=== PATIENT | male | born 1955 | race Caucasian/White ===

== ENCOUNTER 2020-05-23 11:11 | Observation (INO) ==
[2020-05-23] MEDS ORDERED: ONDANSETRON INJ 2 MG/ML 2 ML VIAL IV STA (12:06)
[2020-05-23] MEDS ORDERED: MoRPHine SULFATE 10 MG/ML CARP/VIAL IV STA (12:06)
[2020-05-23] MEDS ORDERED: SODIUM CHLORIDE 0.9% 1000ML 1,000 ML IV ONE (12:06)
--- NOTE | 2020-05-23 12:06 | Emergency Department Note ---
Impression & Plan Acute appendicitis with localized peritonitis, Abdominal pain, Leukocytosis ED Provider Note NAME: MARY FLORIAN AGE: 65 SEX: M : 1955 ARRIVES VIA: Walk-In INFORMANT: Patient, ED PROVIDER(S): Sadi Calabrese DO CHIEF COMPLAINT: Abdominal pain HPI: Patient is a 65-year-old male who presents the ER for mid abdominal pain. This started yesterday after eating breakfast. He has been having nausea and vomiting and diarrhea since then. He was seen in the ER earlier this morning. He had a CT abdomen pelvis done which did not visualize the appendix. He was called back in as he was having worsening pain and was instructed to come back in.. He denies any dysuria urgency or frequency. No fevers. He is unable to eat or drink. He notes the pain is sharp stabbing and a 10 out of 10 and radiates across his abdomen. No other exacerbating or remitting factors. No previous abdominal surgeries. ROS: See above HPI for pertinent positives & negatives. A total of 10 systems reviewed and were otherwise negative. PAST MEDICAL HISTORY:See Below PAST SURGICAL HISTORY:See Below FAMILY HISTORY:See Below SOCIAL HISTORY:See Below HOME MEDICATIONS:See Below ALLERGIES:See Below VITALS:See Below PHYSICAL EXAMINATION: GENERAL: Sitting up in bed, alert, well appearing, well nourished, no distress, non-toxic EYE EXAM: normal conjunctiva. OROPHARYNX: no exudate, no erythema, lips, buccal mucosa, and tongue normal and mucous membranes are moist NECK: supple, no nuchal rigidity, no adenopathy, non-tender LUNGS: Clear to auscultation. Normal chest wall mechanics HEART: no murmurs, S1 normal and S2 normal ABDOMEN: Diffuse tenderness throughout entire abdomen localized in right lower quadrant, +rebound and guarding BACK: Back is symmetrical on inspection and there is no deformity, no midline tenderness, no CVA tenderness. SKIN: no rashes and no bruising UPPER EXTREMITIES: upper extremities are grossly normal. LOWER EXTREMITIES: No pitting edema. NEURO EXAM: Normal sensorium, cranial nerves II-XII grossly intact, normal speech, no gross weakness of arms, no gross weakness of legs. MEDICAL DECISION MAKING: Patient is a 65-year-old male who presents the ER for diffuse abdominal pain. He was seen here earlier today and had a CT of his abdomen pelvis per report it was unremarkable And red as a gastroenteritis. It was reread this morning by our radiologist who is concern for acute appendicitis. Patient did call back in and was having worsening pain. He was instructed to return. On my exam Patient had rebound and guarding in the right lower quadrant. Review of the CT showed likely appendicitis with free air.Labs were still consistent with a leukocytosis which decreased slightly at 14,000. No significant anemia. BMP with LFTs bilirubin and lipase was unremarkable.She was given IV antibiotics and re discussed with general surgery and was taken to the ER.He was also given IV pain medications as well as fluids and Zofran. Triage Nursing notes reviewed. Prior medical records reviewed Vital Signs: reviewed and remarkable for Hypertensive Differential diagnosis: Differential diagnoses includes but is not limited to gastritis, peptic ulcer disease, GERD, gallbladder disease, pancreatitis, small bowel obstruction, acute coronary syndrome, pericarditis, ischemic bowel, irritable bowel disease, irritable bowel syndrome, appendicitis, diverticulitis, malignancy, hernia, urinary tract infection, torsion, perforation, trauma, infectious. ER treatment provided: See below Diagnostics interpreted by me: ECG: none Cardiac Monitoring: An order was placed for continuous cardiac monitoring. The monitor shows a rate of 52 with sinus rhythm. Laboratory studies: As stated above and show below. Imaging studies: CT reviewed from previous visit Consultation(s): Discussed with Dr. Otf Painting who believes to be consistent with acute appendicitis and a small perforation Discussed with Bill from general surgery who evaluated the patient to come to the ER. ED COURSE: Procedures: none Critical Care: None Past Med/Surg History Medical History Acute appendicitis with localized peritonitis No significant past medical history Surgical History H/O hemorrhoidectomy Social History Preferred Language: Israeli Feels Safe at Home: Yes Smoking Status: Former smoker Allergies Allergies Allergy/AdvReac Type Severity Reaction Status Date / Time No Known Allergies Allergy Unverified 05/23/20 11:52 Home Meds Home Medications Medication Instructions Recorded Confirmed No Known Home Medications 05/23/20 05/23/20 Results & Data (ED) Vital Signs Vital Signs - 24 hr 05/23/20 11:16 05/23/20 11:36 05/23/20 11:41 Temperature 36.4 C L Temperature Source Oral Pulse Rate 45 L 46 L Pulse Rate [Left Finger] Pulse Rate from SpO2 Sensor 46 L Pulse Rhythm [Left Finger] Pulse Strength [Left Finger] Respiratory Rate 20 22 Respiratory Effort / Characteristics Non-Labored Spontaneous Respiratory Depth Normal Respiratory Pattern Regular Blood Pressure 169/73 H 161/76 H Blood Pressure [Left Arm] Blood Pressure Mean 105 102 Blood Pressure Mean [Left Arm] Blood Pressure Position [Left Arm] Pulse Oximetry 100 94 Oxygen Delivery Method Room Air Room Air Room Air Sepsis Recent Fever Within 48 Hours No Sepsis New/Unexplained Change in Mental Status No Sepsis Action Taken by Nursing No Action Required 05/23/20 12:00 05/23/20 12:30 05/23/20 13:00 Temperature Temperature Source Pulse Rate 48 L 48 L 47 L Pulse Rate [Left Finger] Pulse Rate from SpO2 Sensor 49 L 47 L Pulse Rhythm [Left Finger] Pulse Strength [Left Finger] Respiratory Rate 16 16 16 Respiratory Effort / Characteristics Respiratory Depth Respiratory Pattern Blood Pressure 154/76 H 146/73 H 143/81 H Blood Pressure [Left Arm] Blood Pressure Mean 106 100 102 Blood Pressure Mean [Left Arm] Blood Pressure Position [Left Arm] Pulse Oximetry 99 96 95 Oxygen Delivery Method Room Air Room Air Room Air Sepsis Recent Fever Within 48 Hours Sepsis New/Unexplained Change in Mental Status Sepsis Action Taken by Nursing 05/23/20 13:30 05/23/20 14:00 05/23/20 14:30 Temperature Temperature Source Pulse Rate 41 L 41 L 44 L Pulse Rate [Left Finger] Pulse Rate from SpO2 Sensor 41 L 42 L 44 L Pulse Rhythm [Left Finger] Pulse Strength [Left Finger] Respiratory Rate 17 17 20 Respiratory Effort / Characteristics Respiratory Depth Respiratory Pattern Blood Pressure 148/78 H 149/75 H 147/74 H Blood Pressure [Left Arm] Blood Pressure Mean 109 88 101 Blood Pressure Mean [Left Arm] Blood Pressure Position [Left Arm] Pulse Oximetry 99 97 97 Oxygen Delivery Method Room Air Sepsis Recent Fever Within 48 Hours Sepsis New/Unexplained Change in Mental Status Sepsis Action Taken by Nursing 05/23/20 14:58 Temperature 37 C Temperature Source Oral Pulse Rate Pulse Rate [Left Finger] 44 L Pulse Rate from SpO2 Sensor Pulse Rhythm [Left Finger] Regular Pulse Strength [Left Finger] Normal Respiratory Rate 18 Respiratory Effort / Characteristics Non-Labored Spontaneous Respiratory Depth Normal Respiratory Pattern Regular Blood Pressure Blood Pressure [Left Arm] 183/84 H Blood Pressure Mean Blood Pressure Mean [Left Arm] 117 Blood Pressure Position [Left Arm] Lying Pulse Oximetry 99 Oxygen Delivery Method Room Air Sepsis Recent Fever Within 48 Hours Sepsis New/Unexplained Change in Mental Status Sepsis Action Taken by Nursing Laboratory Data Result diagrams: 05/23/20 11:35 05/23/20 11:35 Lab Results 05/23/20 05/23/20 Range/Units 11:35 11:35 WBC 14.42 H (4.8-10.8) K/uL RBC 4.69 L (4.7-6.1) M/uL Hgb 14.2 (14.0-18.0) g/dL Hct 40.7 L (42-52) % MCV 86.8 (80-100) fL MCH 30.3 (25-34) pg MCHC 34.9 (32-36) g/dL RDW Std Deviation 41.3 (36.4-46.3) fL RDW Coeff of Carolee 13.0 (11.5-14.5) % Plt Count 269 (130-400) K/uL MPV 10.0 (7.4-10.4) fL Immature Gran % (Auto) 0.2 % Neut % (Auto) 77.8 % Lymph % (Auto) 13.2 % [place] % (Auto) 8.5 % Eos % (Auto) 0.2 % Baso % (Auto) 0.1 % Neut # (Auto) 11.20 H (1.4-6.5) K/uL Lymph # (Auto) 1.91 (1.2-3.4) K/uL [place] # (Auto) 1.23 H (0.11-0.59) K/uL Eos # (Auto) 0.03 (0-0.5) K/uL Baso # (Auto) 0.02 (0-0.2) K/uL Immature Gran # (Auto) 0.03 H (0.00-0.02) K/uL Sodium 135 L (136-145) mmol/L Potassium 3.7 (3.5-5.1) mmol/L Chloride 104 (98-107) mmol/L Carbon Dioxide 23 (21-32) mmol/L Anion Gap 8.0 (3-11) BUN 11 (7-18) mg/dl Creatinine 0.95 (0.6-1.4) mg/dl Est Cr Clr Drug Dosing 71.5 ml/min Est GFR ( Amer) 96.3 Est GFR (Non-Af Amer) 83.1 BUN/Creatinine Ratio 11.9 (10-20) Glucose 112 H (70-99) mg/dl Calcium 8.7 (8.5-10.1) mg/dl Total Bilirubin 0.7 (0.2-1) mg/dl AST 18 (15-37) U/L ALT 24 (12-78) U/L Alkaline Phosphatase 105 (45-117) U/L Total Protein 7.6 (6.4-8.2) gm/dl Albumin 3.8 (3.4-5.0) gm/dl Globulin 3.8 (2.5-4.0) gm/dl Albumin/Globulin Ratio 1.0 (0.9-2) Lipase 114 (73-393) U/L Administered Medications Discontinued Medications Bupivacaine HCl (Marcaine 0.5% Mpf) Confirm Administered Dose 30 ml .ROUTE .STK- MED ONE Stop: 05/23/20 15:28 Last Admin: 05/23/20 16:46 Dose: 20 ml Documented by: [id number] Sodium Chloride (Nss 1000ml) 1,000 mls @ 999 mls/hr IV .Q1H1M ONE Stop: 05/23/20 13:06 Last Infusion: 05/23/20 13:27 Dose: 0 mls/hr Documented by: [id number] Admin: 05/23/20 12:23 Dose: 999 mls/hr Documented by: [id number] Piperacillin Sod/Tazobactam Sod (Zosyn) 4.5 gm in 120 mls @ 240 mls/hr IV NOW ONE Stop: 05/23/20 12:46 Last Infusion: 05/23/20 13:00 Dose: 0 mls/hr Documented by: [id number] Admin: 05/23/20 12:29 Dose: 240 mls/hr Documented by: [id number] Morphine Sulfate (Morphine Sulfate) 6 mg IV NOW STA Stop: 05/23/20 12:07 Last Admin: 05/23/20 12:23 Dose: 6 mg Documented by: [id number] Ondansetron HCl (Zofran) 4 mg IV NOW STA Stop: 05/23/20 12:07 Last Admin: 05/23/20 12:23 Dose: 4 mg Documented by: [id number] Discharge Plan Visit Data *Final* Discharge Date/Time: 05/23/20 14:50 Chief Complaint: Abdominal Pain Stated Complaint: ABD PAIN ED Provider: Sadi Calabrese Discharge Problem: Acute appendicitis with localized peritonitis, Abdominal pain, Leukocytosis Patient Disposition: Still a Patient Discharge Instructions Interventions: ED Discharge Assessment Last Done: 05/23/20 14:50 Discharge Problem: Acute appendicitis with localized peritonitis Qualifiers: Appendicitis gangrene presence: unspecified whether gangrene present Appendicitis perforation presence: unspecified whether perforation present Appendicitis abscess presence: unspecified whether abscess present Qualified Code(s): K35.30 - Acute appendicitis with localized peritonitis, without perforation or gangrene Abdominal pain Qualifiers: Abdominal location: unspecified location Qualified Code(s): R10.9 - Unspecified abdominal pain Leukocytosis Qualifiers: Leukocytosis type: unspecified Qualified Code(s): D72.829 - Elevated white blood cell count, unspecified
[2020-05-23] MEDS ORDERED: PIPERACILLIN/TAZOBACTAM 4.5 GM/120 ML BAG IV ONE (12:17)
[2020-05-23] MEDS ORDERED: PIPERACILL/TAZOBAC CONSULT ACTIVE PRN (12:17)
[2020-05-23 12:19] LABS: Basophils # (auto) 0.02 K/uL (0-0.2); Basophils % (auto) 0.1 %; Eosinophils # (auto) 0.03 K/uL (0-0.5); Eosinophils % (auto) 0.2 %; Hematocrit (blood only) 40.7 % (42-52); Hemoglobin 14.2 g/dL (14.0-18.0); Immature Granulocytes # (auto) 0.03 K/uL (0.00-0.02); Immature Granulocytes % (auto) 0.2 %; Lymphocytes # (auto) 1.91 K/uL (1.2-3.4); Lymphocytes % (auto) 13.2 %; Mean Corpuscular Hemoglobin 30.3 pg (25-34); Mean Corpuscular Hgb Conc 34.9 g/dL (32-36); Mean Corpuscular Volume 86.8 fL (80-100); Monocytes # (auto) 1.23 K/uL (0.11-0.59); Monocytes % (auto) 8.5 %; Neutrophils % (auto) 77.8 %; Platelet Count 269 K/uL (130-400); RDW Standard Deviation 41.3 fL (36.4-46.3); Red Blood Count 4.69 M/uL (4.7-6.1); White Blood Count 14.42 K/uL (4.8-10.8)
[2020-05-23 12:30] LABS: Albumin Level 3.8 gm/dl (3.4-5.0); BUN Creatinine Ratio 11.9 (10-20); Calcium 8.7 mg/dl (8.5-10.1); Creatinine Clr Calc Pharmacy 71.5 ml/min; Est GFR (African American) 96.3; Est GFR (Non-African American) 83.1; Potassium 3.7 mmol/L (3.5-5.1)
[2020-05-23 12:33] LABS: Bilirubin,Total 0.7 mg/dl (0.2-1); Globulin 3.8 gm/dl (2.5-4.0); Total Protein 7.6 gm/dl (6.4-8.2)
--- NOTE | 2020-05-23 13:22 | History & Physical Report ---
Date of Service May 23, 2020 Assessment & Plan (1) Acute appendicitis with localized peritonitis: Acute appendicitis 65-year-old male with suspected acute appendicitis based on imaging and abdominal exam. He understands that this may represent a small bowel loop, however he would like to proceed with surgery rather than follow-up imaging. Also he understands that there could be a perforation requiring conversion to open her small bowel resection. Plan for laparoscopic appendectomy, possible open, possible bowel resection The risks of the procedure were discussed to include but not limited to bleeding, infection, normal appendix, damage to surrounding structures, conversion open, need for future more extensive surgery, and the risk of anesthesia Zosyn given in ER Admit for observation overnight Diagnosis, details the procedure and recovery, and plan of care discussed the patient, all questions were answered, the patient expressed understanding agrees the plan of care as stated History of Present Illness Chief Complaint: Abdominal pain Primary Care Provider: NO PCP 65-year-old male called back to the emergency room over concerns for appendicitis. He started having global abdominal pain yesterday morning after eating breakfast. He did have some diarrhea. He felt like it was indigestion and may be had some food poisoning, however the pain began to worsen. He eventually presented to the emergency department and had a work-up that included a CT scan with IV contrast as well as labs. The CT scan was read as possibly some enteritis with some dilated loops of small bowel, with nonvisualization of the appendix. He was given an anti-inflammatory as well as some antiemetics and felt a little bit better and was discharged home. He called back this morning because his symptoms had returned, at which point they informed him that the CT scan had been over read by our radiologist as a likely acute appendicitis and t hat he should come back to the emergency department. There have been no changes in his status. He did vomit early this morning after trying to drink some fluids. He has had colonoscopies in the past, most recently 6 months ago. No personal or family history of inflammatory bowel disease. He is never had symptoms like this before. He does have a low heart rate at baseline which is been worked up in the past. 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 Allergies Allergy/AdvReac Type Severity Reaction Status Date / Time No Known Allergies Allergy Unverified 05/23/20 11:52 Home Medications Home Medications Medication Instructions Recorded Confirmed Type No Known Home Medications 05/23/20 05/23/20 History Past Med/Surg History Social History Preferred Language: Polish Feels Safe at Home: Yes Smoking Status: Former smoker Review of Systems Review of Systems: All systems reviewed & are unremarkable except as noted in HPI & below Physical Exam Constitutional: WD/WN, vitals as above Eyes: PERRL, conjunctivae normal, anicteric sclerae ENMT: external ear and nose normal, oropharynx normal Neck: trachea midline, no thyromegaly Respiratory: normal respiratory effort, lungs clear to auscultation Cardiovascular: Rate/Rhythm: regular rhythm and + bradycardic Gastrointestinal (Abdomen): Percussion/Palpation: + abdomen tender (Diffusely tender to palpation, no guarding, worse in the RLQ) and abdomen soft; no guarding, abdomen not rigid and no hepatosplenomegaly Musculoskeletal: no cyanosis or clubbing, extremities motor strength 5/5 Skin: no rashes, warm and dry Neurologic: PERRL, EOMI, accommodation nl, no face palsy, no dysarthria Psychiatric: A+Ox3, euthymic affect Lymphatic: no cervical or axillary lymphadenopathy Results & Data Results & Data ([facility]) Vital Signs (Past 12 Hours) Vital Signs Temp Pulse Resp BP Pulse Ox 05/23/20 11:16 36.4 C L 45 L 20 169/73 H 100 Laboratory Results Laboratory Results - last 24 hr 05/23/20 05/23/20 11:35 11:35 WBC 14.42 H RBC 4.69 L Hgb 14.2 Hct 40.7 L MCV 86.8 MCH 30.3 MCHC 34.9 RDW Std Deviation 41.3 RDW Coeff of Carolee 13.0 Plt Count 269 MPV 10.0 Immature Gran % (Auto) 0.2 Neut % (Auto) 77.8 Lymph % (Auto) 13.2 [place] % (Auto) 8.5 Eos % (Auto) 0.2 Baso % (Auto) 0.1 Neut # (Auto) 11.20 H Lymph # (Auto) 1.91 [place] # (Auto) 1.23 H Eos # (Auto) 0.03 Baso # (Auto) 0.02 Immature Gran # (Auto) 0.03 H Sodium 135 L Potassium 3.7 Chloride 104 Carbon Dioxide 23 Anion Gap 8.0 BUN 11 Creatinine 0.95 Est Cr Clr Drug Dosing 71.5 Est GFR ( Amer) 96.3 Est GFR (Non-Af Amer) 83.1 BUN/Creatinine Ratio 11.9 Glucose 112 H Calcium 8.7 Total Bilirubin 0.7 AST 18 ALT 24 Alkaline Phosphatase 105 Total Protein 7.6 Albumin 3.8 Globulin 3.8 Albumin/Globulin Ratio 1.0 Lipase 114 Diagnostic Findings [place], [place] [phone] CT Scan Report Patient: MARY FLORIAN Date: 05/23/20 MR#: [id number]: [address] Acct ID:[id number]: [facility] Zip[facility] [id number] [id number] Age: 65Location: ED Sex: M Room/Bed: Att Phy:Diagnosis: ABD PAIN, CRAMPING Erna Phy: PCP,Maria Esther Date: 05/23/20 Fam Phy:Interpreting Phy: Akil Painting MD Admit Phy: Ordering Phy: Gracie Gage PA-C cc: ~ CT OF THE ABDOMEN AND PELVIS WITH CONTRAST CLINICAL HISTORY: abdominal cramping, vomiting COMPARISON STUDY: None. TECHNIQUE: Following IV administration of 91 mL of Optiray-320, axial images of the abdomen and pelvis were obtained from the lung bases to the proximal femurs. Images were reviewed in the axial, sagittal, and coronal planes. IV contrast was administered without complication. Automated exposure control was utilized for the study. A dose lowering technique was utilized adhering to the principles of ALARA. CT DOSE: 386.75 mGy.cm FINDINGS: Lung bases are unremarkable. No pneumatosis, free air or portal venous gas is present. The liver, spleen, adrenal glands, kidneys and pancreas are normal. There is no biliary or pancreatic ductal dilatation. There is no peripancreatic or pericholecystic infiltration. Mild wall thickening of several proximal small bowel loops is noted. A diverticulum of the second portion of the duodenum is noted. Note is made of a gas and fluid filled structure within the right lower quadrant that measures 2.1 cm in caliber. There is minimal adjacent infiltration. 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 This contains hyperdense material. Equivocal adjacent extraluminal gas is noted. There is sigmoid diverticulosis without evidence for acute diverticulitis. IMPRESSION: Fluid and gas containing structure within the right lower quadrant with minimal adjacent infiltration that measures 2.1 cm in caliber. A dilated appendix suggestive of acute appendicitis is favored. Equivocal extraluminal gas. Less likely, this could reflect a small bowel loop. If the clinical picture is not suggestive of acute appendicitis, a repeat CT is recommended. Findings discussed with Dr. Bee at time of dictation. ACT 112: Negative or n PG Care Time/CCT Total # of Minutes Spent Total Time Spent with Patient: Total time spent is greater than 50% in coordination of care (as documented) at patient's floor/unit and/or counseling patient: Coding Level of Care Code 67186 OBS Care - Level 3 Diagnoses Acute appendicitis with localized peritonitis K35.30
[2020-05-23] MEDS ORDERED: MIDAZOLAM HCL 1 MG/ML 2ML VIAL ONE (14:38)
[2020-05-23] MEDS ORDERED: NEOSTIGMINE METHYLSULFATE 5 MG/5 ML SYR ONE (14:38)
[2020-05-23] MEDS ORDERED: LIDOCAINE HCL 2% 2 ML VIAL/AMP(20MG/ML) INFIL ONE (14:38)
[2020-05-23] MEDS ORDERED: PROPOFOL IV EMULSION 10 MG/ML 20 ML VIAL IV ONE (14:38)
[2020-05-23] MEDS ORDERED: ONDANSETRON INJ 2 MG/ML 2 ML VIAL ONE ×2 (14:38→16:13)
[2020-05-23] MEDS ORDERED: fentaNYL citrate 100 MCG/2 ML VIAL ONE (14:38)
[2020-05-23] MEDS ORDERED: DEXAMETHASONE SOD INJ 4 MG/ML VIAL ONE (14:38)
[2020-05-23] MEDS ORDERED: GLYCOPYRROLATE 0.2 MG/ML VIAL ONE ×2 (14:38→16:40)
[2020-05-23] MEDS ORDERED: BUPIVACAINE 0.5 % 5 MG/1 ML MPF 30ML VIAL ONE (15:27)
[2020-05-23] MEDS ORDERED: PROMETHAZINE HCL 6.25 MG in SODIUM CHLORIDE 0.9% 50 ML IV PRN (15:53)
[2020-05-23] MEDS ORDERED: fentaNYL citrate 100 MCG/2 ML VIAL IV PRN (15:53)
[2020-05-23] MEDS ORDERED: ATROPINE SULFATE 0.1 MG/ML 10ML SYR IV PRN (15:53)
[2020-05-23] MEDS ORDERED: ePHEDrine sulfate 50 MG/ML AMP IV PRN (15:53)
[2020-05-23] MEDS ORDERED: ONDANSETRON INJ 2 MG/ML 2 ML VIAL IV PRN ×2 (15:53→18:31)
[2020-05-23] MEDS ORDERED: HYDROmorphone INJ 2 MG/ML SYR/VIAL IV PRN (15:53)
--- NOTE | 2020-05-23 15:54 | Anesthesiology Consultation ---
Date of Service May 23, 2020 Assessment & Plan (1) Encounter for pre-operative examination: Chart Review Chart Review: Acceptable Risk for Surgery and Patient NOT seen in Pre Admission Testing Consults Requested none ASA [id number] Proposed Anesthesia Anesthesia Type: General Risk / Benefits Reviewed With: PT / POA / Parent / Guardian, Accepts Plan and I nformed Consent Obtained History Surgery Operation Date: 05/23/20 15:00 Proposed Procedures p Laparoscopic Appendectomy - Jaret Mcnair, DO, FACS Height/Weight Height: 5 ft 7 in Weight: 70 kg Allergies Allergy/AdvReac Type Severity Reaction Status Date / Time No Known Allergies Allergy Unverified 05/23/20 11:52 Medications Home Medications Medication Instructions Recorded Confirmed Last Taken No Known Home Medications 05/23/20 05/23/20 Unknown NPO Date Last Intake of Fluids: 05/23/20 Time Last Intake of Fluids: 08:00 Date Last Intake of Solids: 05/22/20 Time Last Intake of Solids: 15:00 Past Medical History Medical History Acute appendicitis with localized peritonitis No significant past medical history Exercise / Class Metabolic Activity II 4-5 Yardwork/Stairs/Walk up hill Past Surgical History Surgical History H/O hemorrhoidectomy Past Anesthesia History No Hx of Anesthesia Complications and No Family Hx of Anesthesia Complications History of PONV No Hx of PONV and No Hx of Motion Sickness Social History Smoking Status: Former smoker Physical Exam Vital Signs Last Vital Signs Temp 37 C 05/23/20 14:58 Pulse 44 L 05/23/20 14:58 Resp 18 05/23/20 14:58 BP 183/84 H 05/23/20 14:58 Pulse Ox 99 05/23/20 14:58 ENMT Mouth: no dentition abnormality Thyromental Distance: > or= 3.5 Finger Breadths Mallampati Class: II Neck normal visual inspection Respiratory normal respiratory effort Auscultation: lungs clear to auscultation bilaterally Cardiovascular Rate/Rhythm: regular rate and regular rhythm Psychiatric Orientation: alert Testing Laboratory Results 05/23/20 11:35 05/23/20 11:35
--- NOTE | 2020-05-23 16:50 | Operative Report ---
PG Post Operative Report Pre & Post Diagnosis Operation Date: 05/23/20 15:00 Pre-Op Diagnosis: acute appendicitis Postoperative diagnosis: Acute, nonperforated appendicitis I identified the patient and participated in the time-out.: Yes Procedure Operation Date: 05/23/20 15:00 Laparoscopic appendectomy Surgeon Jaret Mcnair DO, FACS Mohs Surgeon Kolton Cruz Estimated Blood Loss 5 Findings Consistent with Post-Op Diagnosis Dilated, minimally inflamed appendix, healthy base. No evidence of perforation. Good hemostasis. Specimens Appendix Anesthesia Type General Complications none Disposition Accompanied Patient To Recovery: No Disposition: Recovery Room Indications 65-year-old male presented with with abdominal pain overnight, CT scan initially read as negative, was called back due to over read concerning for acute appendicitis. Reviewed with radiologist, agree with read of appendicitis based on physical exam, lab work, and imaging. Plan for laparoscopic appendectomy, possible open, possible bowel resection. The risks of the procedure were discussed, all questions were answered, and the patient agreed to proceed with surgery as planned. Description of Procedure The patient was properly identified, consented, and taken to the operating room where he was placed in the supine position. General endotracheal anesthesia was induced. SCDs and a safety belt were placed. Preoperative antibiotics were administered. A Castellanos catheter was not placed. The patient's abdomen was prepped and draped in the standard sterile fashion. Surgical timeout was performed and all parties were in agreement that this was the correct patient and procedure to be performed and we continued as planned. A curvilinear infraumbilical incision was made with electrocautery and deepened down to the fascia with blunt dissection. The base of the umbilicus was grasped with a Agapito and elevated towards the ceiling. An incision was made in the midline fascia with a knife and entry into the peritoneum was confirmed. Stay suture of 0 Vicryl was placed and a Oliveira trocar was inserted. The abdomen was insufflated with carbon dioxide which the patient tolerated without incident. The laparoscope was inserted and no damage from initial trocar placement was noted, no gross abnormalities were noted within the 4 quadrants of the abdomen. 5 mm ports were then placed in the left lower quadrant with care not to damage the epigastric vessels, and in the suprapubic midline with care not to damage the bladder. The patient was placed in Trendelenburg position and rotated towards the left. The small bowel was swept away from the right lower quadrant. The cecum was grasped with an atraumatic grasper exposing the appendix. The appendix was significantly dilated and moderately inflamed. There was no evidence of perforation. There was minimal reactive fluid in the pelvis. A window was created between the base of the appendix and the mesoappendix. A adam loaded endoscopic stapler was then used to divide the appendix at its base. A adam load was then used to divide the mesoappendix. Hemostasis was good. The appendix remained intact and was placed in an Endo Catch bag and removed through the umbilical port site. The right lower quadrant and pelvis was irrigated and hemostasis was found to be good. 5 mm trochars were removed under direct visualization and the abdomen was allowed to collapse. The umbilical port site fascia was closed with 0 Vicryl suture. The wound was irrigated, and the skin of all ports was closed with 4-0 Monocryl subcuticular sutures. Dermabond was placed over the wounds. The patient was extubated in the operating room and taken to the PACU where he recovered without apparent incident. All sponge, instrument and needle counts were correct at the conclusion of the procedure. The patient tolerated the procedure well. The physician's financial sales assistant was present and scrubbed for the entire the case. He was critical in positioning the patient, prepping and draping, retraction and exposure, driving the laparoscope, closure the incisions, and placement of the d ressings. I attest to the content of the Intraoperative Record and any orders documented therein. Any exceptions are noted below.
--- NOTE | 2020-05-23 17:43 | Anesthesiology Progress Note ---
Date of Service May 23, 2020 Anesthesia Post Procedure Vital Signs Vital Signs: Temp Pulse Pulse Pulse Resp BP BP 05/23/20 17:29 36.3 C L 55 L 17 144/85 H 05/23/20 14:58 37 C 44 L 18 183/84 H 05/23/20 14:30 44 L 20 147/74 H 05/23/20 14:00 41 L 17 149/75 H 05/23/20 13:30 41 L 17 148/78 H 05/23/20 13:00 47 L 16 143/81 H 05/23/20 12:30 48 L 16 146/73 H 05/23/20 12:00 48 L 16 154/76 H 05/23/20 11:36 46 L 22 161/76 H 05/23/20 11:16 36.4 C L 45 L 20 169/73 H Pulse Ox 05/23/20 17:29 97 05/23/20 14:58 99 05/23/20 14:30 97 05/23/20 14:00 97 05/23/20 13:30 99 05/23/20 13:00 95 05/23/20 12:30 96 05/23/20 12:00 99 05/23/20 11:36 94 05/23/20 11:16 100 Pain Intensity Abdomen: Pain Intensity: 6 Transfer of Care Handoff Completed per policy Notes Mental Status: alert / awake / arousable Patient Amnestic to Procedure: Yes Nausea / Vomiting: adequately controlled Pain: adequately controlled Airway Patency, RR, SpO2: stable & adequate BP & HR: stable & adequate Hydration State: stable & adequate Anesthetic Complications: no major complications apparent
[2020-05-23] MEDS ORDERED: ACETAMINOPHEN 325 MG TAB PO PRN (18:31)
[2020-05-23] MEDS ORDERED: MoRPHine SULFATE 4 MG/ML 1 ML CARP\\VIAL IV PRN (18:31)
[2020-05-23] MEDS ORDERED: MoRPHine SULFATE 2 MG/ML CARP IV PRN (18:31)
[2020-05-23] MEDS ORDERED: OXYCODONE/ACETAMINOPHEN 5mg/325mg TAB PO PRN (18:31)
[2020-05-23] MEDS: cefOXitin 2,000 MG in DEXTROSE 5% 50 ML IV SCH (20:18)
[2020-05-23] MEDS: LACTATED RINGER'S 1,000 ML IV SCH (20:18)
[2020-05-24] MEDS: cefOXitin 2,000 MG in DEXTROSE 5% 50 ML IV SCH ×2 (00:18→06:12)
[2020-05-24] MEDS: LACTATED RINGER'S 1,000 ML IV SCH (00:19)
[2020-05-24 01:19] LABS: Appearance Urine Clear (Clear); Bilirubin Urine Negative (Negative); Blood Urine Negative (Negative); Color Urine Yellow; Glucose Urine UA Negative (Negative); Ketones Urine Negative (Negative); Leukocyte Esterase Urine Negative (Negative); Nitrite Urine Negative (Negative); Protein Urine Negative (Negative); Specific Gravity Urine 1.008 (1.000-1.030); Urobilinogen Urine Negative (Negative); pH Urine 6.5 (4.5-7.5)
--- NOTE | 2020-05-24 08:11 | Anesthesiology Progress Note ---
Date of Service May 24, 2020 Anesthesia Post Procedure Vital Signs Vital Signs: Temp Pulse Pulse Pulse Resp BP BP 05/24/20 07:49 37 C 45 L 16 147/74 H 05/24/20 03:54 36.8 C 59 L 18 118/65 05/23/20 23:50 36.8 C 54 L 18 147/74 H 05/23/20 21:30 36.7 C 56 L 15 119/76 05/23/20 21:03 36.5 C 57 L 16 137/61 05/23/20 19:30 36.6 C 58 L 16 136/73 05/23/20 19:00 36.6 C 47 L 18 152/62 H 05/23/20 18:30 35.6 C L 55 L 16 130/75 05/23/20 18:05 36.3 C L 46 L 15 118/63 05/23/20 17:55 69 19 129/64 05/23/20 17:45 45 L 15 127/68 05/23/20 17:35 48 L 21 135/71 05/23/20 17:29 36.3 C L 55 L 17 144/85 H 05/23/20 14:58 37 C 44 L 18 183/84 H 05/23/20 14:30 44 L 20 147/74 H 05/23/20 14:00 41 L 17 149/75 H 05/23/20 13:30 41 L 17 148/78 H 05/23/20 13:00 47 L 16 143/81 H 05/23/20 12:30 48 L 16 146/73 H 05/23/20 12:00 48 L 16 154/76 H 05/23/20 11:36 46 L 22 161/76 H 05/23/20 11:16 36.4 C L 45 L 20 169/73 H Pulse Ox 05/24/20 07:49 98 05/24/20 03:54 98 05/23/20 23:50 99 05/23/20 21:30 96 05/23/20 21:03 100 05/23/20 19:30 96 05/23/20 19:00 97 05/23/20 18:30 97 05/23/20 18:05 95 05/23/20 17:55 93 05/23/20 17:45 96 05/23/20 17:35 93 05/23/20 17:29 97 05/23/20 14:58 99 05/23/20 14:30 97 05/23/20 14:00 97 05/23/20 13:30 99 05/23/20 13:00 95 05/23/20 12:30 96 05/23/20 12:00 99 05/23/20 11:36 94 05/23/20 11:16 100 Pain Intensity Abdomen: Pain Intensity: 6 Notes Mental Status: alert / awake / arousable and participated in evaluation Patient Amnestic to Procedure: Yes Nausea / Vomiting: adequately controlled Pain: adequately controlled Airway Patency, RR, SpO2: stable & adequate BP & HR: stable & adequate Hydration State: stable & adequate Anesthetic Complications: no major complications apparent and Pt Satisfied with anesthetic care
--- NOTE | 2020-05-24 08:19 | Surgery Progress Note ---
Date of Service May 24, 2020 Assessment & Plan (1) Acute appendicitis with localized peritonitis: POD 1 lap appy advance diet d/c when tolerating diet Supervising Physician Co-Signing Physician Notes Patient seen and examined, labs reviewed, agree with above. POD #1 laparoscopic appendectomy. Pain significantly improved, tolerated regular diet. Straight cath overnight for urinary retention, but is now peeing normally. On exam he is afebrile with normal vital signs. His abdomen soft, nontender, nondistended. Incisions healing well with Dermabond in place. Some ecchymosis around umbilical incision. POD #1 lap appendectomy Discharge to home Follow-up in 2 weeks Activity restrictions and wound care instructions reviewed Return precautions given Call with questions or concerns Subjective feels much better, some shoulder pain Physical Exam Gastrointestinal (Abdomen): Inspection/Auscultation: + abdominal surgical incision (clean, dry) Percussion/Palpation: abdomen soft Results & Data Vital Signs (Past 12 Hours) Vital Signs Temp Pulse Resp BP Pulse Ox 05/24/20 07:49 37 C 45 L 16 147/74 H 98 05/24/20 03:54 36.8 C 59 L 18 118/65 98 05/23/20 23:50 36.8 C 54 L 18 147/74 H 99 05/23/20 21:30 36.7 C 56 L 15 119/76 96 05/23/20 21:03 36.5 C 57 L 16 137/61 100 PG Care Time/CCT Total # of Minutes Spent Total Time Spent with Patient: Total time spent is greater than 50% in coordination of care (as documented) at patient's floor/unit and/or counseling patient: Coding Level of Care Code None Diagnoses Acute appendicitis with localized peritonitis K35.30 Appendicitis abscess presence: unspecified whether abscess present Appendicitis gangrene presence: unspecified whether gangrene present Appendicitis perforation presence: unspecified whether perforation present (1) Acute appendicitis with localized peritonitis Appendicitis abscess presence: unspecified whether abscess present Appendicitis gangrene presence: unspecified whether gangrene present Appendicitis perforation presence: unspecified whether perforation present Qualified Code(s): K35.30 - Acute appendicitis with localized peritonitis, without perforation or gangrene
--- NOTE | 2020-05-24 10:36 | Discharge Summary ---
Date of Service May 24, 2020 Admission HPI Per Admitting Provider 65-year-old male called back to the emergency room over concerns for appendicitis. He started having global abdominal pain yesterday morning after eating breakfast. He did have some diarrhea. He felt like it was indigestion and may be had some food poisoning, however the pain began to worsen. He eventually presented to the emergency department and had a work-up that included a CT scan with IV contrast as well as labs. The CT scan was read as possibly some enteritis with some dilated loops of small bowel, with nonvisualization of the appendix. He was given an anti-inflammatory as well as some antiemetics and felt a little bit better and was discharged home. He called back this morning because his symptoms had returned, at which point they informed him that the CT scan had been over read by our radiologist as a likely acute appendicitis and that he should come back to the emergency department. There have been no changes in his status. He did vomit early this morning after trying to drink some fluids. He has had colonoscopies in the past, most recently 6 months ago. No personal or family history of inflammatory bowel disease. He is never had symptoms like this before. He does have a low heart rate at baseline which is been worked up in the past. 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 Principal Diagnosis Acute appendicitis Discharge Exam Gastrointestinal (Abdomen) Inspection/Auscultation: + abdominal surgical incision (clean, dry) Percussion/Palpation: abdomen soft Discharge Data Allergies Allergy/AdvReac Type Severity Reaction Status Date / Time No Known Allergies Allergy Unverified 05/23/20 11:52 Consultations 05/23/20 12:06 Consult General Surgery Stat Procedures Performed Operation Date: 05/23/20 15:00 Actual Procedures p Laparoscopic Appendectomy - Jaret Mcnair DO, FACS Hospital Course (1) Acute appendicitis with localized peritonitis: 65 y/o male with abdominal pain was seen in the ED and later called back when CT was reviewed in-house as suggesting appendicitis. He was taken to the operating room for laparoscopic appendectomy and transferred to the surgical floor for overnight observation. In the morning he was able to tolerate diet and oral analgesics. He was stable for discharge. Total Time Total Time Spent Total Time Spent (In Minutes): 10 Discharge Plan Discharge Items Patient Disposition: Home - Self-Care Reason For Visit: APPENDICITIS Discharge Diagnosis: appendectomy Activity: As commented below Lifting: No more than 10 pounds Bathing: No limitations Driving/Machine Use: Resume 3 days after discharge Non-emergency contact: Surgeon Call non-emergency contact if: you have any medication questions, your pain is not controlled, you have a fever, your temperature is above 101.5 and your wound has increased redness Follow-up/Referrals: Jaret Mcnair, RADHA RICHARDSON [Physician] - 06/02/20 10:30 am (Call the office to make an appt in 7-10 days) PCP,NO [Primary Care Provider] - Diet: Regular Addtl Attending Provider Instructions: Pending Studies at Discharge: No Stand-Alone Forms: My [employer] ANTIQUES & CONSIGNMENT, Opioid Pain Management, Smoking Cessation Medications and DC Order Prescriptions: New oxycodone-acetaminophen [Percocet] 5-325 mg tablet 1 - 2 tab PO Q4H PRN (Reason: pain, initial therapy, max 6 daily) Qty: 15 RF: 0 Discharge Orders: Discharge Order (Routine); Ordered 05/24/20 Ordered By: Kolton Hayden/Other Patient Handouts: Abdomen Surg Dc Admission Data Admit Date/Time: 05/23/20 17:26 Attending Provider: Jaret Mcnair Admit Provider: Jaret Mcnair Primary Care Provider: [id number] Other Providers: Jaret Mcnair Other Interventions: Discharge Summary Assessment (RN) Last Done: 05/24/20 09:48 Coding Level of Care Code D/C Day Management <30 mins Diagnoses Acute appendicitis with localized peritonitis K35.30 Appendicitis abscess presence: unspecified whether abscess present Appendicitis gangrene presence: unspecified whether gangrene present Appendicitis perforation presence: unspecified whether perforation present
== END 2020-05-24 11:45 | disposition home or self-care (01) ==
LOC: ED 11:11 → ASU 14:50 → 3E 14:50